=== PATIENT | male | born 1960 | race Caucasian/White ===

== ENCOUNTER 2023-11-26 11:44 | Emergency (ER) | payer SELFPAY ==
[~2023-11-26] VITALS: Ht 167.6 cm; Wt 88.5 kg
[2023-11-26 12:13] VITALS: O2SAT 96
[2023-11-26] MEDS ORDERED: BACITRACIN ZINC OINT UDPKT TOP ONE (12:30)
[2023-11-26] MEDS ORDERED: LIDOCAINE HCL/PF 1% 10 MG/ML 5ML VIAL INFIL ONE (12:30)
[2023-11-26] MEDS ORDERED: TETANUS, DIPHTHERIA, PERTUSSIS VAC/PF 0.5ML (>10YR OLD) IM ONE (12:30)
[2023-11-26] MEDS: BACITRACIN ZINC OINT UDPKT TOP NR (14:04)
[2023-11-26] MEDS: LIDOCAINE HCL/PF 1% 10 MG/ML 5ML VIAL INFIL NR (14:05)
[2023-11-26] MEDS ORDERED: CEFAZOLIN 1000MG PREMIX 50 ML IV ONE ×2 (15:00)
[2023-11-26] MEDS: TETANUS, DIPHTHERIA, PERTUSSIS VAC/PF 0.5ML (>10YR OLD) IM ONE (15:02)
[2023-11-26] MEDS: CEFAZOLIN 2GM/100ML 100 ML IV SCH (15:15)
[2023-11-26] MEDS ORDERED: CEPH500C2 MT (16:17)
[2023-11-26 17:19] VITALS: BP 151/78; PULSE 58; RESP 16; TEMP 98
== END 2023-11-26 17:00 | disposition home or self-care (01) ==
LOC: ER 11:44
DX: S62.633B Displaced fracture of distal phalanx of left middle finger, initial encounter for open fracture (principal); W45.8XXA Other foreign body or object entering through skin, initial encounter; Y93.89 Activity, other specified; Y92.89 Other specified places as the place of occurrence of the external cause; Y99.8 Other external cause status
CPT/HCPCS: 99284; 96365; 73140; 90715; 12002; 90471; J0690; J3490